=== PATIENT | male | born 1935 | race Caucasian/White ===

== ENCOUNTER 2023-12-20 13:27 | Inpatient (IN) ==
[2023-12-20 14:14] LABS: Hematocrit 51.4 % (38-53); Hemoglobin 17.5 g/dL (13.2-16.3); Mean Corpuscular Hemoglobin 33.7 pg (27-33); Mean Corpuscular Volume 99.3 fL (80-97); Mean Platelet Volume 8.9 fL (7.5-11.2); Platelet Count 532 10^3/uL (150-450); Red Blood Count 5.18 10^6/uL (4.06-5.63); Red Cell Distribution Width 15.1 % (12-17); White Blood Count 28.3 10^3/uL (3.6-10.2)
[2023-12-20 14:35] LABS: Activated Partial Thrombo Time 37.1 seconds (26.0-38.0); INR 2.06 (0.85-1.14)
[2023-12-20 14:44] LABS: High Sens Troponin Baseline 96 pg/mL (<20)
[2023-12-20 14:50] LABS: ALT 30 U/L (7-52); Albumin 3.9 g/dL (3.2-5.2); Albumin/Globulin Ratio 1.3 (1-3); Alkaline Phosphatase 177 U/L (35-149); Anion Gap 9 mmol/L (2-16); Blood Urea Nitrogen 41 mg/dL (6-24); C Reactive Protein 212.41 mg/L (<8.01); CO2 Carbon Dioxide 25 mmol/L (22-32); Calcium 11.7 mg/dL (8.6-10.3); Chloride 103 mmol/L (101-111); Creatinine, Serum 1.03 mg/dL (0.67-1.17); Digoxin 1.9 ng/ml (0.8-2.0); Globulin 3.1 g/dL (2-4); Glucose 136 mg/dL (70-100); Sodium 137 mmol/L (135-145); Total Bilirubin 1.5 mg/dL (0.2-1.0); eGFR CKD-EPI 70.7 (>60)
[2023-12-20 15:02] LABS: ABS Basophils 0.1 10^3/uL (0.0-0.1); ABS Eosinophils 0.2 10^3/uL (0.0-0.5); ABS Lymphocytes 0.8 10^3/uL (1.0-4.8); ABS Monocytes 2.4 10^3/uL (0.0-1.1); ABS Neutrophils 24.8 10^3/uL (1.5-7.6); ABS Nucleated RBC 0.02 10^3/ul; Anisocytosis 1+; Eosinophil % 0.7 %; Lymphocyte % 2.7 %; Nucleated Red Blood Cells % 0.1 %/100WBC (0.0-0.8); Polychromasia 1+; Toxic Granulation 1+
[2023-12-20] MEDS: Azithromycin 500 mg/250 ml NS 500 MG/250 ML BAG IVPB ONE (15:24)
[2023-12-20] MEDS: Piperacillin/Tazobac 3.375 BAG 3.375 GM/100 ML BAG IV ONE (15:24)
[2023-12-20] MEDS: NS 0.9% 500 ml BAG 500 ML IV ONE ×2 (15:24→19:40)
[2023-12-20 15:57] LABS: Urine Appearance Clear; Urine Bilirubin Negative (Negative); Urine Blood Negative (Negative); Urine Color Yellow; Urine Glucose Negative (Negative); Urine Ketones Negative (Negative); Urine Nitrite Negative (Negative); Urine Protein 1+ (>=30 mg/dL) (Negative); Urine Specific Gravity 1.025 (1.002-1.030); Urine Urobilinogen Negative (Negative); Urine pH 5.5 (5.0-8.0)
[2023-12-20 15:58] LABS: Urine Bacteria Absent /HPF (Absent); Urine Red Blood Cell Trace(0-2/hpf) /HPF (0-Trace); Urine White Blood Cell Trace(0-5/hpf) /HPF (0-Trace)
[2023-12-20 16:01] LABS: High Sensitivity Troponin 1 Hr 99 pg/mL (<20)
[2023-12-20 16:19] LABS: Potassium Redraw 4.2 mmol/L (3.5-5.0)
[2023-12-20] MEDS: Iohexol 350 (CONTRAST) 500 ML MDV IV ONE (16:32)
[2023-12-20] MEDS ORDERED: Magnesium Hydroxide LIQ 30 ML UDC PO PRN (19:18)
[2023-12-20] MEDS ORDERED: Mineral Oil ENEMA 118 ML/BOTTLE BOTTLE PR PRN (19:18)
[2023-12-20] MEDS: Lactated Ringers 1000 ml BAG 1,000 ML IV ONE (19:35)
[2023-12-20] MEDS ORDERED: Zosyn per Pharmacy NOTE FOLLOW UP SCH (20:00)
[2023-12-20] MEDS: ZOSYN 3.375 GM Q8H per EXTENDED INFUSION IV SCH (21:30)
[2023-12-21 07:30] LABS: Anion Gap 14 mmol/L (2-16); Blood Urea Nitrogen 33 mg/dL (6-24); CO2 Carbon Dioxide 15 mmol/L (22-32); Calcium 10.8 mg/dL (8.6-10.3); Chloride 108 mmol/L (101-111); Glucose 80 mg/dL (70-100); Sodium 137 mmol/L (135-145); eGFR CKD-EPI 83.2 (>60)
[2023-12-21 07:57] LABS: Hematocrit 49.4 % (38-53); Hemoglobin 16.5 g/dL (13.2-16.3); Mean Corpuscular Hemoglobin 33.9 pg (27-33); Mean Corpuscular Hgb Conc 33.4 g/dL (31-36); Mean Corpuscular Volume 101.4 fL (80-97); Mean Platelet Volume 8.8 fL (7.5-11.2); Platelet Count 449 10^3/uL (150-450); Red Blood Count 4.88 10^6/uL (4.06-5.63); White Blood Count 24.3 10^3/uL (3.6-10.2)
[2023-12-21] MEDS: ZOSYN 3.375 GM Q8H per EXTENDED INFUSION IV SCH (07:57)
[2023-12-21 09:26] LABS: Calcium (PTH Intact) 10.7 mg/dL (8.6-10.3)
[2023-12-21] MEDS ORDERED: Vancomycin per Pharmacy 1 EA NOTE FOLLOW UP SCH (11:00)
[2023-12-21] MEDS: Vancomycin 1,250 MG in NS 0.9% 250 ml 250 ML IVPB ONE (11:43)
[2023-12-21] MEDS: Azithromycin 500 mg/250 ml NS 500 MG/250 ML BAG IVPB SCH (16:00)
[2023-12-21] MEDS: Vancomycin 1000 MG in NS 0.9% 250 ML IVPB SCH (23:10)
[2023-12-22 05:45] LABS: Hematocrit 45.9 % (38-53); Hemoglobin 15.8 g/dL (13.2-16.3); Mean Corpuscular Hemoglobin 33.8 pg (27-33); Mean Corpuscular Hgb Conc 34.3 g/dL (31-36); Mean Corpuscular Volume 98.4 fL (80-97); Mean Platelet Volume 8.9 fL (7.5-11.2); Platelet Count 510 10^3/uL (150-450); Red Blood Count 4.66 10^6/uL (4.06-5.63); Red Cell Distribution Width 15.1 % (12-17); White Blood Count 23.6 10^3/uL (3.6-10.2)
[2023-12-22 06:59] LABS: ABS Basophils 0.3 10^3/uL (0.0-0.1); ABS Eosinophils 1.2 10^3/uL (0.0-0.5); ABS Lymphocytes 1.8 10^3/uL (1.0-4.8); ABS Monocytes 2.3 10^3/uL (0.0-1.1); ABS Neutrophils 18.1 10^3/uL (1.5-7.6); ABS Nucleated RBC 0.01 10^3/ul; Eosinophil % 5.1 %; Lymphocyte % 7.4 %; Nucleated Red Blood Cells % 0.1 %/100WBC (0.0-0.8)
[2023-12-22 07:09] LABS: Creatinine, Serum 0.92 mg/dL (0.67-1.17); Magnesium 1.7 mg/dL (1.9-2.7); Potassium 4.7 mmol/L (3.5-5.0)
[2023-12-22] MEDS: Magnesium Sulf 4 GM/100 ML IV 4,000 MG/100 ML BAG IVPB ONE (09:35)
[2023-12-23 06:19] LABS: Hematocrit 54.1 % (38-53); Hemoglobin 17.9 g/dL (13.2-16.3); Mean Corpuscular Hemoglobin 33.6 pg (27-33); Mean Corpuscular Hgb Conc 33.1 g/dL (31-36); Mean Corpuscular Volume 101.5 fL (80-97); Platelet Count 524 10^3/uL (150-450); Red Blood Count 5.33 10^6/uL (4.06-5.63); Red Cell Distribution Width 15.2 % (12-17); White Blood Count 24.3 10^3/uL (3.6-10.2)
[2023-12-23 06:21] LABS: ABS Basophils 0.2 10^3/uL (0.0-0.1); ABS Eosinophils 1.2 10^3/uL (0.0-0.5); ABS Lymphocytes 1.5 10^3/uL (1.0-4.8); ABS Neutrophils 19.4 10^3/uL (1.5-7.6); ABS Nucleated RBC 0.01 10^3/ul; Eosinophil % 4.9 %; Lymphocyte % 6.1 %
[2023-12-23] MEDS: Magnesium Sulfate 2 gm BAG 2 GM/50 ML BAG IVPB ONE (07:45)
[2023-12-23 08:13] LABS: Anion Gap 10 mmol/L (2-16); Blood Urea Nitrogen 23 mg/dL (6-24); CO2 Carbon Dioxide 16 mmol/L (22-32); Calcium 10.2 mg/dL (8.6-10.3); Chloride 111 mmol/L (101-111); Creatinine, Serum 0.88 mg/dL (0.67-1.17); Glucose 81 mg/dL (70-100); Magnesium 2.3 mg/dL (1.9-2.7); Sodium 137 mmol/L (135-145); eGFR CKD-EPI 83.7 (>60)
[2023-12-23 08:17] LABS: Potassium, Whole Blood 4.3 mmol/L (3.4-4.5)
[2023-12-23] MEDS ORDERED: Vancomycin Trough Check NOTE FOLLOW UP ONE (10:30)
[2023-12-23 11:25] LABS: Creatinine, Serum 0.87 mg/dL (0.67-1.17)
[2023-12-23 11:53] LABS: Hematocrit 49.8 % (38-53); Hemoglobin 16.8 g/dL (13.2-16.3); Mean Corpuscular Hemoglobin 33.5 pg (27-33); Mean Corpuscular Hgb Conc 33.7 g/dL (31-36); Mean Corpuscular Volume 99.4 fL (80-97); Mean Platelet Volume 8.6 fL (7.5-11.2); Platelet Count 533 10^3/uL (150-450); Red Blood Count 5.01 10^6/uL (4.06-5.63); Red Cell Distribution Width 14.6 % (12-17); White Blood Count 23.5 10^3/uL (3.6-10.2)
[2023-12-23] MEDS ORDERED: Vancomycin per Pharmacy 1 EA NOTE FOLLOW UP SCH (12:00)
[2023-12-23] MEDS: Acyclovir IV 700 MG in NS 0.9% 100 ml BAG 100 ML IVPB SCH (12:16)
[2023-12-23 12:21] LABS: ABS Basophils 0.1 10^3/uL (0.0-0.1); ABS Lymphocytes 1.1 10^3/uL (1.0-4.8); ABS Monocytes 1.9 10^3/uL (0.0-1.1); ABS Neutrophils 19.4 10^3/uL (1.5-7.6); ABS Nucleated RBC 0.01 10^3/ul; Eosinophil % 4.3 %; Lymphocyte % 4.7 %
[2023-12-23 12:22] LABS: Creatinine, Serum 0.89 mg/dL (0.67-1.17); eGFR CKD-EPI 83.5 (>60)
[2023-12-23] MEDS: Ampicillin ADVAN 2 GM in NS 0.9% 100 ml BAG 100 ML IVPB SCH (13:16)
[2023-12-23] MEDS: Vancomycin 1,500 MG in NS 0.9% 250 ml 250 ML IVPB ONE (13:48)
[2023-12-23] MEDS: Heparin 5000 UNITS/ML 1 mL VIAL IV SCH (14:03)
[2023-12-23] MEDS: Heparin DRIP 25,000 UNITS BAG 25,000 UNITS/250 ML BAG IV SCH (14:06)
[2023-12-23] MEDS: Iohexol 350 (CONTRAST) 500 ML MDV IV ONE (15:05)
[2023-12-23 16:07] LABS: Albumin 3.5 g/dL (3.2-5.2); Albumin/Globulin Ratio 1.5 (1-3); Direct Bilirubin 0.3 mg/dL (0.03-0.18); Globulin 2.4 g/dL (2-4); Total Bilirubin 1.3 mg/dL (0.2-1.0); Total Protein 5.9 g/dL (6.4-8.9)
[2023-12-23] MEDS: Cefepime 2 GM in Dextrose 2 GM/50 ML BAG IV SCH (17:34)
[2023-12-23] MEDS: Lactated Ringers 1000 ml BAG 1,000 ML IV ONE (17:49)
[2023-12-23] MEDS: Digoxin IV 0.5 MG/2 ML AMP (0.25 MG/ML) IV SLOW PU ONE (21:03)
[2023-12-23] MEDS: Morphine 2 MG/ML SYRINGE IV ONE (21:57)
[2023-12-23] MEDS: Metoprolol Tartrate 5 mg VIAL 5 ml VIAL (1 mg/ml) IV SCH (22:29)
[2023-12-23 22:30] LABS: Calcium 10.1 mg/dL (8.6-10.3); Creatinine, Serum 0.92 mg/dL (0.67-1.17)
[2023-12-24] MEDS: Vancomycin 1000 MG in NS 0.9% 250 ML IVPB SCH (01:54)
[2023-12-24 08:51] LABS: Hematocrit 48.7 % (38-53); Hemoglobin 16.1 g/dL (13.2-16.3); Mean Corpuscular Hemoglobin 33.1 pg (27-33); Mean Corpuscular Hgb Conc 33.1 g/dL (31-36); Mean Corpuscular Volume 100.2 fL (80-97); Mean Platelet Volume 8.6 fL (7.5-11.2); Platelet Count 614 10^3/uL (150-450); Red Blood Count 4.86 10^6/uL (4.06-5.63); White Blood Count 30.3 10^3/uL (3.6-10.2)
[2023-12-24 08:54] LABS: ALT 27 U/L (7-52); Albumin 3.4 g/dL (3.2-5.2); Albumin/Globulin Ratio 1.3 (1-3); Alkaline Phosphatase 158 U/L (35-149); Anion Gap 14 mmol/L (2-16); Blood Urea Nitrogen 21 mg/dL (6-24); CO2 Carbon Dioxide 14 mmol/L (22-32); Calcium 9.9 mg/dL (8.6-10.3); Chloride 112 mmol/L (101-111); Globulin 2.7 g/dL (2-4); Glucose 97 mg/dL (70-100); Sodium 140 mmol/L (135-145); Total Bilirubin 1.3 mg/dL (0.2-1.0); Total Protein 6.1 g/dL (6.4-8.9); eGFR CKD-EPI 83.2 (>60)
[2023-12-24 09:33] LABS: ABS Basophils 0.3 10^3/uL (0.0-0.1); ABS Eosinophils 0.6 10^3/uL (0.0-0.5); ABS Lymphocytes 0.7 10^3/uL (1.0-4.8); ABS Monocytes 2.1 10^3/uL (0.0-1.1); ABS Neutrophils 26.6 10^3/uL (1.5-7.6); ABS Nucleated RBC 0.04 10^3/ul; Eosinophil % 1.9 %; Lymphocyte % 2.4 %; Nucleated Red Blood Cells % 0.1 %/100WBC (0.0-0.8)
[2023-12-24 12:01] LABS: Phosphorus 2.5 mg/dL (2.5-5.0); Potassium Redraw 4.4 mmol/L (3.5-5.0)
[2023-12-24 12:11] LABS: PCO2 Arterial 25 mmHg (35-45); PO2 Arterial 63 mmHg (80-100)
[2023-12-24 15:53] LABS: Urine Appearance Clear; Urine Bacteria Absent /HPF (Absent); Urine Bilirubin Negative (Negative); Urine Blood 1+ (Negative); Urine Color Yellow; Urine Glucose Negative (Negative); Urine Ketones 1+ (Negative); Urine Nitrite Negative (Negative); Urine Protein 1+ (>=30 mg/dL) (Negative); Urine Red Blood Cell 2+(6-10/hpf) /HPF (0-Trace); Urine Specific Gravity >1.050 (1.002-1.030); Urine Urobilinogen Negative (Negative); Urine White Blood Cell Trace(0-5/hpf) /HPF (0-Trace); Urine pH 5.5 (5.0-8.0)
[2023-12-24] MEDS ORDERED: cefTRIAXone 2 gm/50 mL D5W 2 GM/50 ML BAG IV SCH (16:45)
[2023-12-24] MEDS: Digoxin IV 0.5 MG/2 ML AMP (0.25 MG/ML) IV SLOW PU ONE (19:00)
[2023-12-24] MEDS: Morphine 2 MG/ML SYRINGE IV PRN (21:16)
[2023-12-24] MEDS: Cefepime 2 GM in Dextrose 2 GM/50 ML BAG IV SCH (23:03)
[2023-12-25 06:51] LABS: Hematocrit 46.9 % (38-53); Hemoglobin 15.8 g/dL (13.2-16.3); Mean Corpuscular Hemoglobin 32.9 pg (27-33); Mean Corpuscular Hgb Conc 33.6 g/dL (31-36); Mean Corpuscular Volume 97.8 fL (80-97); Platelet Count 590 10^3/uL (150-450); Red Cell Distribution Width 14.9 % (12-17); White Blood Count 31.7 10^3/uL (3.6-10.2)
[2023-12-25 07:31] LABS: ABS Basophils 0.2 10^3/uL (0.0-0.1); ABS Eosinophils 0.2 10^3/uL (0.0-0.5); ABS Lymphocytes 0.6 10^3/uL (1.0-4.8); ABS Monocytes 2.1 10^3/uL (0.0-1.1); ABS Neutrophils 28.6 10^3/uL (1.5-7.6); ABS Nucleated RBC 0.02 10^3/ul; Calcium 9.7 mg/dL (8.6-10.3); Creatinine, Serum 1.05 mg/dL (0.67-1.17); Eosinophil % 0.7 %; Lymphocyte % 1.9 %; Magnesium 1.9 mg/dL (1.9-2.7); Potassium 4.3 mmol/L (3.5-5.0); eGFR CKD-EPI 69.1 (>60)
[2023-12-25] MEDS: Dexamethasone IV 4 MG/ML VIAL 1 ml VIAL IV SLOW PU SCH ×3 (10:58→17:56)
[2023-12-25] MEDS: Albuterol/Ipratropium NEB.SOL (2.5/0.5 MG) 3 ML NEB.SOLN INH PRN (11:47)
[2023-12-25] MEDS: cefTRIAXone 2 gm/50 mL D5W 2 GM/50 ML BAG IV SCH (11:52)
[2023-12-25] MEDS: Pantoprazole VIAL 40 MG VIAL IV SCH (12:02)
[2023-12-25] MEDS ORDERED: Metoprolol Tartrate 5 mg VIAL 5 ml VIAL (1 mg/ml) ONE (14:09)
[2023-12-25] MEDS: Metoprolol Tartrate 5 mg VIAL 5 ml VIAL (1 mg/ml) IV ONE ×2 (14:17→16:40)
[2023-12-25] MEDS: Vancomycin Trough Check NOTE FOLLOW UP ONE (14:23)
[2023-12-25 15:03] LABS: Body Fluid Source Cerebral Spinal
[2023-12-25 15:20] LABS: CSF Glucose 78 mg/dL (40-70)
[2023-12-25 15:55] LABS: Body Fluid Mono 43 %; Body Fluid Total Cells Counted 100
[2023-12-25 15:57] LABS: Body Fluid Appearance Clear; Body Fluid Color Colorless; CSF Tube # 4
[2023-12-25] MEDS: Digoxin IV 0.5 MG/2 ML AMP (0.25 MG/ML) IV SLOW PU SCH (16:55)
[2023-12-25] MEDS: Metoprolol Tartrate 5 mg VIAL 5 ml VIAL (1 mg/ml) IV SCH (16:55)
[2023-12-25] MEDS: Lidocaine 1% MPF 5 ML VIAL INJ ONE (17:37)
[2023-12-25 18:18] LABS: CSF Body Fluid WBC 43 /mcL
[2023-12-25 19:30] LABS: Hematocrit 52.9 % (38-53); Hemoglobin 17.7 g/dL (13.2-16.3); Mean Corpuscular Hgb Conc 33.5 g/dL (31-36); Mean Corpuscular Volume 98.6 fL (80-97); Mean Platelet Volume 8.6 fL (7.5-11.2); Platelet Count 591 10^3/uL (150-450); Red Blood Count 5.36 10^6/uL (4.06-5.63); Red Cell Distribution Width 15.1 % (12-17); White Blood Count 26.8 10^3/uL (3.6-10.2)
[2023-12-25 19:59] LABS: ABS Basophils 0.4 10^3/uL (0.0-0.1); ABS Lymphocytes 0.4 10^3/uL (1.0-4.8); ABS Monocytes 0.6 10^3/uL (0.0-1.1); ABS Neutrophils 25.4 10^3/uL (1.5-7.6); ABS Nucleated RBC 0.01 10^3/ul; Eosinophil % 0.1 %; Lymphocyte % 1.3 %
[2023-12-25 20:16] LABS: Creatinine, Serum 1.3 mg/dL (0.67-1.17); eGFR CKD-EPI 53.5 (>60)
[2023-12-25] MEDS: Heparin 5000 UNITS/ML 1 mL VIAL IV SCH (20:19)
[2023-12-25] MEDS: Heparin DRIP 25,000 UNITS BAG 25,000 UNITS/250 ML BAG IV SCH (20:26)
[2023-12-26] MEDS: Albuterol/Ipratropium NEB.SOL (2.5/0.5 MG) 3 ML NEB.SOLN INH ONE (00:20)
[2023-12-26] MEDS: Sodium Chloride(INHALANT) 3% 4 ML NEB.SOLN INH ONE (00:24)
[2023-12-26] MEDS: Vancomycin 750 MG in NS 0.9% 250 ML IVPB SCH (00:54)
[2023-12-26 03:29] LABS: ALT 19 U/L (7-52); Albumin 3.3 g/dL (3.2-5.2); Albumin/Globulin Ratio 1.2 (1-3); Alkaline Phosphatase 118 U/L (35-149); Anion Gap 18 mmol/L (2-16); Blood Urea Nitrogen 33 mg/dL (6-24); CO2 Carbon Dioxide 14 mmol/L (22-32); Calcium 9.9 mg/dL (8.6-10.3); Chloride 114 mmol/L (101-111); Creatinine, Serum 1.45 mg/dL (0.67-1.17); Globulin 2.7 g/dL (2-4); Glucose 174 mg/dL (70-100); Sodium 146 mmol/L (135-145); eGFR CKD-EPI 46.9 (>60)
[2023-12-26 03:40] LABS: Hemoglobin 16.8 g/dL (13.2-16.3); Mean Corpuscular Hemoglobin 33.3 pg (27-33); Mean Corpuscular Hgb Conc 33.6 g/dL (31-36); Mean Corpuscular Volume 99.2 fL (80-97); Mean Platelet Volume 8.6 fL (7.5-11.2); Platelet Count 608 10^3/uL (150-450); Red Blood Count 5.04 10^6/uL (4.06-5.63); White Blood Count 23.5 10^3/uL (3.6-10.2)
[2023-12-26 04:22] LABS: ABS Basophils 0.1 10^3/uL (0.0-0.1); ABS Lymphocytes 0.6 10^3/uL (1.0-4.8); ABS Monocytes 0.3 10^3/uL (0.0-1.1); ABS Neutrophils 22.5 10^3/uL (1.5-7.6); ABS Nucleated RBC 0.02 10^3/ul; Eosinophil % 0.1 %; Lymphocyte % 2.4 %; Nucleated Red Blood Cells % 0.1 %/100WBC (0.0-0.8)
[2023-12-26 09:30] LABS: Potassium Redraw 4.3 mmol/L (3.5-5.0)
[2023-12-26] MEDS ORDERED: Lactated Ringers 1000 ml BAG 1,000 ML IV SCH ×2 (11:00→13:43)
[2023-12-26] MEDS: Lactated Ringers 1000 ml BAG 1,000 ML IV SCH ×2 (12:25→14:02)
[2023-12-26] MEDS: Lactated Ringers 1000 ml BAG 1,000 ML IV ONE (16:11)
[2023-12-26] MEDS: Lidocaine 1% MPF 5 ML VIAL INJ ONE (17:15)
[2023-12-26] MEDS ORDERED: Lorazepam PYXIS KEY PRN (18:33)
[2023-12-26] MEDS: LORazepam 2 mg VIAL 1 ml IV PUSH PRN (18:44)
[2023-12-27] MEDS: Acyclovir IV 700 MG in NS 0.9% 100 ml BAG 100 ML IVPB SCH (00:54)
[2023-12-27 06:35] LABS: Hematocrit 42.7 % (38-53); Hemoglobin 14.4 g/dL (13.2-16.3); Mean Corpuscular Hgb Conc 33.7 g/dL (31-36); Mean Platelet Volume 8.4 fL (7.5-11.2); Platelet Count 522 10^3/uL (150-450); Red Blood Count 4.36 10^6/uL (4.06-5.63); Red Cell Distribution Width 15.2 % (12-17)
[2023-12-27 07:37] LABS: ABS Basophils 0.1 10^3/uL (0.0-0.1); ABS Lymphocytes 0.6 10^3/uL (1.0-4.8); ABS Monocytes 0.8 10^3/uL (0.0-1.1); ABS Neutrophils 24.5 10^3/uL (1.5-7.6); ABS Nucleated RBC 0.01 10^3/ul; Lymphocyte % 2.3 %
[2023-12-27 08:21] LABS: Albumin/Globulin Ratio 1.3 (1-3); Calcium 9.6 mg/dL (8.6-10.3); Creatinine, Serum 1.48 mg/dL (0.67-1.17); Globulin 2.4 g/dL (2-4); Magnesium 2.2 mg/dL (1.9-2.7); Phosphorus 2.9 mg/dL (2.5-5.0); Total Bilirubin 0.6 mg/dL (0.2-1.0); Total Protein 5.4 g/dL (6.4-8.9); eGFR CKD-EPI 45.8 (>60)
[2023-12-27 08:40] LABS: Ferritin 293.1 ng/mL (24-336)
[2023-12-27] MEDS ORDERED: Vancomycin Trough Check NOTE FOLLOW UP ONE (11:30)
[2023-12-27 14:55] LABS: CSF VDRL Negative (Negative)
[2023-12-27 15:23] LABS: CSF Oligoclonal Bands 4 bands; Oligoclonal Proteins Interpret 0 bands (<2); Serum Oligoclonal Bands 4 bands
[2023-12-27 19:33] LABS: HSV 1 PCR, CSF Negative (Negative); HSV 2 PCR, CSF Negative (Negative)
[2023-12-28] MEDS: Acetaminophen IV 1 GM/100ML 1,000 MG/100 ML BAG IV PRN (01:46)
[2023-12-28 06:05] LABS: Hematocrit 44.8 % (38-53); Mean Corpuscular Hemoglobin 32.9 pg (27-33); Mean Corpuscular Hgb Conc 33.6 g/dL (31-36); Mean Corpuscular Volume 98.2 fL (80-97); Mean Platelet Volume 8.4 fL (7.5-11.2); Platelet Count 518 10^3/uL (150-450); Red Blood Count 4.56 10^6/uL (4.06-5.63); Red Cell Distribution Width 14.9 % (12-17); White Blood Count 30.2 10^3/uL (3.6-10.2)
[2023-12-28 06:51] LABS: ABS Basophils 0.1 10^3/uL (0.0-0.1); ABS Monocytes 1.3 10^3/uL (0.0-1.1); ABS Neutrophils 27.8 10^3/uL (1.5-7.6); ABS Nucleated RBC 0.03 10^3/ul; Lymphocyte % 3.2 %; Nucleated Red Blood Cells % 0.1 %/100WBC (0.0-0.8)
[2023-12-28 06:52] LABS: RBC Morphology Normal (Normal)
[2023-12-28 07:14] LABS: Anion Gap 12 mmol/L (2-16); Blood Urea Nitrogen 49 mg/dL (6-24); CO2 Carbon Dioxide 21 mmol/L (22-32); Calcium 9.8 mg/dL (8.6-10.3); Chloride 115 mmol/L (101-111); Creatinine, Serum 1.35 mg/dL (0.67-1.17); Glucose 146 mg/dL (70-100); Sodium 148 mmol/L (135-145); eGFR CKD-EPI 51.1 (>60)
[2023-12-28] MEDS: Albumin Human 25% 12.5 GM/50 ML BTL IV ONE (12:58)
[2023-12-28] MEDS: Furosemide 40 mg/4 ml IV VIAL IV SLOW PU ONE (14:32)
[2023-12-28 14:39] LABS: TB1 Ag minus Nil Result -0.01 IU/mL; TB2 Ag minus Nil Result -0.01 IU/mL
[2023-12-28 14:45] LABS: QuantiferonTb Gold Plus Result Indeterminate (Negative)
[2023-12-28] MEDS: methylPREDNISolone SOD SUCC 1000 MG ML VIAL IVPB ONE (18:43)
[2023-12-28] MEDS: methylPREDNISolone SOD SUCC 1000 MG in NS 0.9% 100 ML IVPB ONE (19:50)
[2023-12-28 21:32] LABS: B. burgdorferi PCR Negative (Negative); B. garinii/B. afzellii PCR Negative (Negative); Lyme Disease Source CSF
[2023-12-28] MEDS: levETIRAcetam IV 750 MG in NS 0.9% 100 ml BAG 100 ML IVPB SCH (23:08)
[2023-12-29 06:36] LABS: Hematocrit 46.6 % (38-53); Mean Corpuscular Hemoglobin 33.4 pg (27-33); Mean Corpuscular Hgb Conc 34.3 g/dL (31-36); Mean Corpuscular Volume 97.2 fL (80-97); Mean Platelet Volume 8.6 fL (7.5-11.2); Platelet Count 455 10^3/uL (150-450); Red Blood Count 4.79 10^6/uL (4.06-5.63); Red Cell Distribution Width 15.1 % (12-17); White Blood Count 28.2 10^3/uL (3.6-10.2)
[2023-12-29 07:01] LABS: Albumin 3.3 g/dL (3.2-5.2); Albumin/Globulin Ratio 1.4 (1-3); Calcium 9.6 mg/dL (8.6-10.3); Creatinine, Serum 1.4 mg/dL (0.67-1.17); Globulin 2.4 g/dL (2-4); Total Bilirubin 0.9 mg/dL (0.2-1.0); Total Protein 5.7 g/dL (6.4-8.9); eGFR CKD-EPI 48.9 (>60)
[2023-12-29 08:00] LABS: ABS Lymphocytes 0.6 10^3/uL (1.0-4.8); ABS Monocytes 0.2 10^3/uL (0.0-1.1); ABS Neutrophils 27.4 10^3/uL (1.5-7.6); ABS Nucleated RBC 0.03 10^3/ul; Lymphocyte % 2.1 %; Nucleated Red Blood Cells % 0.1 %/100WBC (0.0-0.8)
[2023-12-29] MEDS: levETIRAcetam IV 750 MG in NS 0.9% 100 ml BAG 100 ML IVPB SCH (09:56)
[2023-12-29 11:43] LABS: Digoxin 1.4 ng/ml (0.8-2.0)
[2023-12-29] MEDS: methylPREDNISolone SOD SUCC 1,000 MG in NS 0.9% 100 ml BAG 100 ML IVPB SCH (20:55)
[2023-12-30 06:59] LABS: Hematocrit 47.2 % (38-53); Hemoglobin 15.9 g/dL (13.2-16.3); Mean Corpuscular Hemoglobin 33.1 pg (27-33); Mean Corpuscular Hgb Conc 33.8 g/dL (31-36); Mean Corpuscular Volume 98.1 fL (80-97); Mean Platelet Volume 9.3 fL (7.5-11.2); Platelet Count 411 10^3/uL (150-450); Red Blood Count 4.81 10^6/uL (4.06-5.63); Red Cell Distribution Width 15.1 % (12-17); White Blood Count 33.1 10^3/uL (3.6-10.2)
[2023-12-30 07:31] LABS: Calcium 9.1 mg/dL (8.6-10.3); Creatinine, Serum 1.17 mg/dL (0.67-1.17); Potassium 4.2 mmol/L (3.5-5.0); eGFR CKD-EPI 60.7 (>60)
[2023-12-30] MEDS: Sodium Chloride(INHALANT) 3% 4 ML NEB.SOLN INH ONE (07:32)
[2023-12-30 08:13] LABS: ABS Basophils 0.1 10^3/uL (0.0-0.1); ABS Lymphocytes 0.4 10^3/uL (1.0-4.8); ABS Monocytes 0.5 10^3/uL (0.0-1.1); ABS Neutrophils 32.1 10^3/uL (1.5-7.6); ABS Nucleated RBC 0.07 10^3/ul; Lymphocyte % 1.3 %; Nucleated Red Blood Cells % 0.2 %/100WBC (0.0-0.8)
[2023-12-30] MEDS: Morphine 2 MG/ML SYRINGE IV PRN (09:27)
[2023-12-30] MEDS ORDERED: Dextrose 50% Syringe 50 ml 25 GM/50 ML SYRINGE IV PUSH PRN (21:42)
[2023-12-30] MEDS: HYDROmorphone 1 MG/1 ML SYRINGE IV SLOW PU ONE (22:08)
[2023-12-31 07:15] LABS: Hematocrit 46.1 % (38-53); Hemoglobin 15.6 g/dL (13.2-16.3); Mean Corpuscular Hgb Conc 33.9 g/dL (31-36); Mean Corpuscular Volume 97.5 fL (80-97); Mean Platelet Volume 9.7 fL (7.5-11.2); Platelet Count 367 10^3/uL (150-450); Red Blood Count 4.73 10^6/uL (4.06-5.63); Red Cell Distribution Width 14.9 % (12-17); White Blood Count 36.5 10^3/uL (3.6-10.2)
[2023-12-31 07:37] LABS: ABS Lymphocytes 0.4 10^3/uL (1.0-4.8); ABS Monocytes 0.6 10^3/uL (0.0-1.1); ABS Neutrophils 35.5 10^3/uL (1.5-7.6); ABS Nucleated RBC 0.06 10^3/ul; Nucleated Red Blood Cells % 0.2 %/100WBC (0.0-0.8)
[2023-12-31 07:56] LABS: Albumin/Globulin Ratio 1.4 (1-3); C Reactive Protein 12.02 mg/L (<8.01); Calcium 8.7 mg/dL (8.6-10.3); Creatinine, Serum 1.05 mg/dL (0.67-1.17); Globulin 2.2 g/dL (2-4); Magnesium 2.2 mg/dL (1.9-2.7); Phosphorus 3.1 mg/dL (2.5-5.0); Potassium 4.3 mmol/L (3.5-5.0); Total Bilirubin 0.6 mg/dL (0.2-1.0); Total Protein 5.2 g/dL (6.4-8.9); eGFR CKD-EPI 69.1 (>60)
[2023-12-31] MEDS: methylPREDNISolone SOD SUCC 500 MG in NS 0.9% 100 ml BAG 100 ML IVPB ONE (20:23)
[2023-12-31] MEDS: Senna TAB 8.6 mg TAB PO SCH (20:29)
[2024-01-01 06:29] LABS: Hematocrit 48.5 % (38-53); Hemoglobin 16.3 g/dL (13.2-16.3); Mean Corpuscular Hemoglobin 32.9 pg (27-33); Mean Corpuscular Hgb Conc 33.5 g/dL (31-36); Mean Corpuscular Volume 98.2 fL (80-97); Mean Platelet Volume 9.7 fL (7.5-11.2); Platelet Count 375 10^3/uL (150-450); Red Blood Count 4.94 10^6/uL (4.06-5.63); Red Cell Distribution Width 15.2 % (12-17); White Blood Count 38.3 10^3/uL (3.6-10.2)
[2024-01-01 06:51] LABS: Calcium 8.7 mg/dL (8.6-10.3); Creatinine, Serum 1.02 mg/dL (0.67-1.17); Potassium 4.6 mmol/L (3.5-5.0); eGFR CKD-EPI 71.6 (>60)
[2024-01-01 07:21] LABS: Magnesium 2.2 mg/dL (1.9-2.7); Phosphorus 2.9 mg/dL (2.5-5.0)
[2024-01-01 18:26] LABS: AGNA-1, CSF Negative (Negative); Amphiphysin Ab, CSF Negative (Negative); CRMP-5-IgG, CSF Negative (Negative); IFA Notes None.; PCA-1, CSF Negative (Negative); PCA-2, CSF Negative (Negative); PCA-Tr, CSF Negative (Negative)
[2024-01-01] MEDS: methylPREDNISolone SOD SUCC 500 MG in NS 0.9% 100 ml BAG 100 ML IVPB ONE (19:48)
[2024-01-02 05:49] LABS: Hematocrit 49.9 % (38-53); Hemoglobin 16.3 g/dL (13.2-16.3); Mean Corpuscular Hemoglobin 32.3 pg (27-33); Mean Corpuscular Hgb Conc 32.7 g/dL (31-36); Mean Corpuscular Volume 98.8 fL (80-97); Platelet Count 371 10^3/uL (150-450); Red Blood Count 5.05 10^6/uL (4.06-5.63); Red Cell Distribution Width 15.2 % (12-17); White Blood Count 35.6 10^3/uL (3.6-10.2)
[2024-01-02 06:38] LABS: Creatinine, Serum 0.73 mg/dL (0.67-1.17); Magnesium 1.7 mg/dL (1.9-2.7); Phosphorus 2.4 mg/dL (2.5-5.0); Potassium 3.7 mmol/L (3.5-5.0); eGFR CKD-EPI 88.6 (>60)
[2024-01-02] MEDS: Magnesium Sulfate 2 gm BAG 2 GM/50 ML BAG IVPB ONE (07:48)
[2024-01-02] MEDS: Calcium Carbonate LIQ 1,250 mg/5 ml UDC PO SCH (08:56)
[2024-01-02] MEDS: Furosemide 20 mg/2 ml IV VIAL IV SLOW PU ONE ×2 (09:53→10:32)
[2024-01-02] MEDS: Nystatin SUSPENSION 100,000 UNITS/ML UDC PO SCH (10:39)
[2024-01-02] MEDS: Chlorhexidine MOUTHWASH 0.12% 15 ML UDC TOPICAL SCH (11:58)
[2024-01-02] MEDS: methylPREDNISolone SOD SUCC 40 mg/ml 1 ml VIAL IV SCH (12:38)
[2024-01-02] MEDS: Potassium Phosphate IV 10 MMOL in NS 0.9% 250 ml 250 ML IVPB ONE (17:16)
[2024-01-03 06:05] LABS: Hematocrit 48.1 % (38-53); Mean Corpuscular Hemoglobin 32.8 pg (27-33); Mean Corpuscular Hgb Conc 33.3 g/dL (31-36); Mean Corpuscular Volume 98.5 fL (80-97); Platelet Count 327 10^3/uL (150-450); Red Blood Count 4.89 10^6/uL (4.06-5.63); Red Cell Distribution Width 15.2 % (12-17); White Blood Count 35.4 10^3/uL (3.6-10.2)
[2024-01-03 06:34] LABS: Calcium 8.5 mg/dL (8.6-10.3); Creatinine, Serum 1.02 mg/dL (0.67-1.17); Magnesium 2.5 mg/dL (1.9-2.7); Potassium 4.9 mmol/L (3.5-5.0); eGFR CKD-EPI 71.6 (>60)
[2024-01-03] MEDS: Furosemide 40 mg/4 ml IV VIAL IV SLOW PU SCH (10:58)
[2024-01-04 05:50] LABS: Hematocrit 51.2 % (38-53); Hemoglobin 17.2 g/dL (13.2-16.3); Mean Corpuscular Hemoglobin 33.1 pg (27-33); Mean Corpuscular Hgb Conc 33.6 g/dL (31-36); Mean Corpuscular Volume 98.7 fL (80-97); Mean Platelet Volume 10.3 fL (7.5-11.2); Platelet Count 297 10^3/uL (150-450); Red Blood Count 5.18 10^6/uL (4.06-5.63); Red Cell Distribution Width 15.1 % (12-17); White Blood Count 43.2 10^3/uL (3.6-10.2)
[2024-01-04 06:30] LABS: Calcium 8.5 mg/dL (8.6-10.3); Creatinine, Serum 0.97 mg/dL (0.67-1.17); Magnesium 2.3 mg/dL (1.9-2.7); Phosphorus 3.7 mg/dL (2.5-5.0); Potassium 5.2 mmol/L (3.5-5.0)
[2024-01-04] MEDS: Haloperidol 5 mg/ml SDV IV/IM 5 MG/ML AMP IV SLOW PU PRN (23:19)
[2024-01-05] MEDS: Metoprolol Tartrate 5 mg VIAL 5 ml VIAL (1 mg/ml) IV ONE (05:33)
[2024-01-05 06:13] LABS: Hematocrit 51.5 % (38-53); Mean Corpuscular Hemoglobin 32.8 pg (27-33); Mean Corpuscular Hgb Conc 32.9 g/dL (31-36); Mean Corpuscular Volume 99.5 fL (80-97); Mean Platelet Volume 10.7 fL (7.5-11.2); Platelet Count 299 10^3/uL (150-450); Red Blood Count 5.18 10^6/uL (4.06-5.63); Red Cell Distribution Width 15.3 % (12-17); White Blood Count 40.2 10^3/uL (3.6-10.2)
[2024-01-05 06:48] LABS: Calcium 8.7 mg/dL (8.6-10.3); Creatinine, Serum 0.92 mg/dL (0.67-1.17); Magnesium 2.3 mg/dL (1.9-2.7); Phosphorus 3.8 mg/dL (2.5-5.0)
[2024-01-05 07:58] LABS: ABS Basophils 0.2 10^3/uL (0.0-0.1); ABS Lymphocytes 0.4 10^3/uL (1.0-4.8); ABS Neutrophils 37.6 10^3/uL (1.5-7.6); ABS Nucleated RBC 0.03 10^3/ul; Nucleated Red Blood Cells % 0.1 %/100WBC (0.0-0.8)
[2024-01-06] MEDS: Metoprolol Tartrate 5 mg VIAL 5 ml VIAL (1 mg/ml) IV ONE (00:56)
[2024-01-06 05:54] LABS: Hemoglobin 17.4 g/dL (13.2-16.3); Mean Corpuscular Hemoglobin 33.3 pg (27-33); Mean Corpuscular Hgb Conc 33.5 g/dL (31-36); Mean Corpuscular Volume 99.6 fL (80-97); Mean Platelet Volume 10.6 fL (7.5-11.2); Platelet Count 282 10^3/uL (150-450); Red Blood Count 5.22 10^6/uL (4.06-5.63); Red Cell Distribution Width 15.3 % (12-17); White Blood Count 39.6 10^3/uL (3.6-10.2)
[2024-01-06 06:00] LABS: INR 1.13 (0.85-1.14)
[2024-01-06 06:52] LABS: Calcium 9.1 mg/dL (8.6-10.3); Creatinine, Serum 0.88 mg/dL (0.67-1.17); Potassium 4.7 mmol/L (3.5-5.0); eGFR CKD-EPI 83.7 (>60)
[2024-01-06] MEDS: NS 0.45% 1000 ml BAG 1,000 ML IV SCH (10:44)
[2024-01-06] MEDS ORDERED: Metoprolol Tartrate 5 mg VIAL 5 ml VIAL (1 mg/ml) IV PRN (11:21)
[2024-01-06] MEDS: Metoprolol Tartrate 5 mg VIAL 5 ml VIAL (1 mg/ml) IV SCH ×2 (11:28→12:35)
[2024-01-06] MEDS ORDERED: Metoprolol Tartrate 5 mg VIAL 5 ml VIAL (1 mg/ml) IV SCH (12:00)
[2024-01-06] MEDS: methylPREDNISolone SOD SUCC 40 mg/ml 1 ml VIAL IV SCH (15:16)
[2024-01-06] MEDS: Digoxin IV 0.5 MG/2 ML AMP (0.25 MG/ML) IV SLOW PU SCH (17:57)
[2024-01-06] MEDS: levETIRAcetam 500 MG IVPREMIX 500 MG/100 ML BAG IVPB SCH (22:44)
[2024-01-07] MEDS: Metoprolol Tartrate 5 mg VIAL 5 ml VIAL (1 mg/ml) IV PRN ×2 (03:20→13:53)
[2024-01-07 06:41] LABS: Hematocrit 51.2 % (38-53); Hemoglobin 17.2 g/dL (13.2-16.3); Mean Corpuscular Hemoglobin 33.4 pg (27-33); Mean Corpuscular Hgb Conc 33.5 g/dL (31-36); Mean Corpuscular Volume 99.6 fL (80-97); Mean Platelet Volume 10.4 fL (7.5-11.2); Platelet Count 268 10^3/uL (150-450); Red Blood Count 5.14 10^6/uL (4.06-5.63); Red Cell Distribution Width 15.6 % (12-17); White Blood Count 40.6 10^3/uL (3.6-10.2)
[2024-01-07 06:59] LABS: Calcium 9.3 mg/dL (8.6-10.3); Creatinine, Serum 0.95 mg/dL (0.67-1.17); Potassium 4.6 mmol/L (3.5-5.0)
[2024-01-07] MEDS: Metoprolol Tartrate 5 mg VIAL 5 ml VIAL (1 mg/ml) IV SCH ×4 (10:50→20:29)
[2024-01-07] MEDS ORDERED: D5W 500 ml BAG 500 ML IV SCH ×2 (11:00)
[2024-01-07] MEDS: Lactated Ringers 1000 ml BAG 500 ML IV ONE (11:43)
[2024-01-07] MEDS: Enoxaparin 40 MG/0.4 ML SYR SUBCUT SCH (11:44)
[2024-01-07] MEDS: Magnesium Sulfate 2 gm BAG 2 GM/50 ML BAG IV ONE (11:44)
[2024-01-07] MEDS: Enoxaparin 40 MG/0.4 ML SYR SUBCUT ONE (13:48)
[2024-01-07] MEDS: methylPREDNISolone SOD SUCC 40 mg/ml 1 ml VIAL IV SCH ×2 (15:41→17:49)
[2024-01-07] MEDS ORDERED: Zosyn per Pharmacy NOTE FOLLOW UP SCH (17:00)
[2024-01-07] MEDS: Piperacillin/Tazobac 3.375 BAG 3.375 GM/100 ML BAG IV ONE (18:11)
[2024-01-07] MEDS: ZOSYN 3.375 GM Q8H per EXTENDED INFUSION IV SCH (23:59)
[2024-01-08] MEDS: Morphine 2 MG/ML SYRINGE IV ONE (07:56)
[2024-01-08 08:50] LABS: Hematocrit 50.8 % (38-53); Hemoglobin 16.5 g/dL (13.2-16.3); Mean Corpuscular Hemoglobin 32.5 pg (27-33); Mean Corpuscular Hgb Conc 32.4 g/dL (31-36); Mean Corpuscular Volume 100.1 fL (80-97); Mean Platelet Volume 10.5 fL (7.5-11.2); Platelet Count 265 10^3/uL (150-450); Red Blood Count 5.07 10^6/uL (4.06-5.63); Red Cell Distribution Width 15.8 % (12-17); White Blood Count 39.9 10^3/uL (3.6-10.2)
[2024-01-08 08:53] LABS: Calcium 9.4 mg/dL (8.6-10.3); Creatinine, Serum 1.02 mg/dL (0.67-1.17); Magnesium 2.2 mg/dL (1.9-2.7); Phosphorus 3.2 mg/dL (2.5-5.0); Potassium 3.8 mmol/L (3.5-5.0); eGFR CKD-EPI 71.6 (>60)
[2024-01-08 09:18] LABS: ABS Basophils 0.6 10^3/uL (0.0-0.1); ABS Lymphocytes 0.4 10^3/uL (1.0-4.8); ABS Monocytes 1.4 10^3/uL (0.0-1.1); ABS Neutrophils 37.6 10^3/uL (1.5-7.6); ABS Nucleated RBC 0.02 10^3/ul; Lymphocyte % 0.9 %; Nucleated Red Blood Cells % 0.1 %/100WBC (0.0-0.8)
[2024-01-08] MEDS: D5W 500 ml BAG 500 ML IV SCH (13:33)
[2024-01-09 09:56] LABS: Hematocrit 49.5 % (38-53); Hemoglobin 16.5 g/dL (13.2-16.3); Mean Corpuscular Hemoglobin 33.7 pg (27-33); Mean Corpuscular Hgb Conc 33.4 g/dL (31-36); Mean Platelet Volume 10.5 fL (7.5-11.2); Platelet Count 248 10^3/uL (150-450); Red Cell Distribution Width 16.1 % (12-17); White Blood Count 42.3 10^3/uL (3.6-10.2)
[2024-01-09 10:59] LABS: Anion Gap 10 mmol/L (2-16); Blood Urea Nitrogen 48 mg/dL (6-24); CO2 Carbon Dioxide 29 mmol/L (22-32); Calcium 9.2 mg/dL (8.6-10.3); Chloride 106 mmol/L (101-111); Creatinine, Serum 0.82 mg/dL (0.67-1.17); Glucose 196 mg/dL (70-100); Sodium 145 mmol/L (135-145); eGFR CKD-EPI 85.5 (>60)
[2024-01-09 11:01] LABS: ABS Basophils 0.5 10^3/uL (0.0-0.1); ABS Lymphocytes 0.4 10^3/uL (1.0-4.8); ABS Monocytes 1.6 10^3/uL (0.0-1.1); ABS Neutrophils 39.8 10^3/uL (1.5-7.6); ABS Nucleated RBC 0.02 10^3/ul; Eosinophil % 0.1 %; Lymphocyte % 0.8 %; Macrocytosis 1+
[2024-01-09 15:18] LABS: Phosphorus 2.7 mg/dL (2.5-5.0); Potassium Redraw 3.5 mmol/L (3.5-5.0)
[2024-01-09] MEDS ORDERED: Flumazenil 0.5 mg/5 ml 0.1 MG/ML 5 ml VIAL IV PRN (15:27)
[2024-01-09] MEDS ORDERED: Naloxone 0.4 mg VIAL 0.4 mg/ml 1 ml VIAL IV PUSH PRN (15:27)
[2024-01-09] MEDS: D5W 500 ml BAG 500 ML IV SCH (17:18)
[2024-01-09] MEDS: Bupivacaine 0.5% SDV PF 30ML VIAL ONE (17:24)
[2024-01-09] MEDS: Lidocaine 2% JELLY 6 ML Topical TOPICAL ONE (17:25)
[2024-01-09] MEDS: Midazolam 2 mg/2 ml VIAL 1 mg/ml 2 ml VIAL (2 mg) ONE (17:25)
[2024-01-09] MEDS: ceFAZolin 1 GM ADVAN 1 GM ADDV.VIAL IVPB ONE (17:25)
[2024-01-09] MEDS: fentaNYL 250 mcg/5 ml 50 MCG/ML 5 ml VIAL (250 MCG) ONE (17:25)
[2024-01-09] MEDS: Midazolam 10 mg/10 ml VIAL 1 mg/ml 10 ml VIAL (10 mg) IV SLOW PU ONE (17:26)
[2024-01-09] MEDS: Glucagon 1 mg VIAL KIT ONE (17:26)
[2024-01-09] MEDS: fentaNYL 100 mcg/2 ml 50 MCG/ML VIAL IV SLOW PU ONE (17:26)
[2024-01-09 19:59] LABS: Mean Corpuscular Hemoglobin 33.5 pg (27-33); Mean Corpuscular Hgb Conc 33.3 g/dL (31-36); Mean Corpuscular Volume 100.6 fL (80-97); Mean Platelet Volume 10.4 fL (7.5-11.2); Platelet Count 245 10^3/uL (150-450); Red Blood Count 4.77 10^6/uL (4.06-5.63); Red Cell Distribution Width 16.2 % (12-17); White Blood Count 38.2 10^3/uL (3.6-10.2)
[2024-01-09] MEDS: Acetaminophen IV 1 GM/100ML 1,000 MG/100 ML BAG IV PRN (20:03)
[2024-01-09 20:13] LABS: Activated Partial Thrombo Time 27.4 seconds (26.0-38.0); INR 1.19 (0.85-1.14)
[2024-01-09 20:38] LABS: ABS Lymphocytes 0.3 10^3/uL (1.0-4.8); ABS Monocytes 1.6 10^3/uL (0.0-1.1); ABS Neutrophils 36.3 10^3/uL (1.5-7.6); ABS Nucleated RBC 0.06 10^3/ul; Eosinophil % 0.1 %; Lymphocyte % 0.8 %; Nucleated Red Blood Cells % 0.2 %/100WBC (0.0-0.8)
[2024-01-10 00:42] LABS: Calcium 9.5 mg/dL (8.6-10.3); Creatinine, Serum 0.82 mg/dL (0.67-1.17); Phosphorus 2.6 mg/dL (2.5-5.0); Potassium 3.8 mmol/L (3.5-5.0); eGFR CKD-EPI 85.5 (>60)
[2024-01-10 18:12] LABS: Hematocrit 49.3 % (38-53); Hemoglobin 16.5 g/dL (13.2-16.3); Mean Corpuscular Hemoglobin 33.6 pg (27-33); Mean Corpuscular Hgb Conc 33.4 g/dL (31-36); Mean Corpuscular Volume 100.4 fL (80-97); Mean Platelet Volume 10.2 fL (7.5-11.2); Platelet Count 223 10^3/uL (150-450); Red Blood Count 4.91 10^6/uL (4.06-5.63); Red Cell Distribution Width 16.2 % (12-17); White Blood Count 40.9 10^3/uL (3.6-10.2)
[2024-01-10 18:25] LABS: Magnesium 2.1 mg/dL (1.9-2.7); Phosphorus 2.6 mg/dL (2.5-5.0)
[2024-01-10 18:50] LABS: ABS Basophils 0.5 10^3/uL (0.0-0.1); ABS Eosinophils 0.1 10^3/uL (0.0-0.5); ABS Lymphocytes 0.6 10^3/uL (1.0-4.8); ABS Monocytes 2.1 10^3/uL (0.0-1.1); ABS Neutrophils 37.6 10^3/uL (1.5-7.6); ABS Nucleated RBC 0.04 10^3/ul; Eosinophil % 0.1 %; Lymphocyte % 1.4 %; Nucleated Red Blood Cells % 0.1 %/100WBC (0.0-0.8)
[2024-01-10] MEDS: Senna TAB 8.6 mg TAB G TUBE SCH (22:09)
[2024-01-10] MEDS: levETIRAcetam LIQ 500 MG/5 ML UDC G TUBE SCH (22:09)
[2024-01-11] MEDS: Calcium Carbonate LIQ 1,250 mg/5 ml UDC G TUBE SCH (10:20)
[2024-01-11 10:22] LABS: Hematocrit 36.1 % (38-53); Mean Corpuscular Hemoglobin 33.8 pg (27-33); Mean Corpuscular Hgb Conc 33.4 g/dL (31-36); Mean Corpuscular Volume 101.4 fL (80-97); Mean Platelet Volume 10.2 fL (7.5-11.2); Platelet Count 146 10^3/uL (150-450); Red Blood Count 3.56 10^6/uL (4.06-5.63); White Blood Count 26.1 10^3/uL (3.6-10.2)
[2024-01-11 10:39] LABS: Albumin 2.8 g/dL (3.2-5.2); Albumin/Globulin Ratio 1.2 (1-3); Calcium 9.2 mg/dL (8.6-10.3); Creatinine, Serum 0.68 mg/dL (0.67-1.17); Globulin 2.3 g/dL (2-4); Magnesium 2.1 mg/dL (1.9-2.7); Phosphorus 2.2 mg/dL (2.5-5.0); Potassium 3.8 mmol/L (3.5-5.0); Total Bilirubin 2.2 mg/dL (0.2-1.0); Total Protein 5.1 g/dL (6.4-8.9); eGFR CKD-EPI 90.5 (>60)
[2024-01-11 13:12] LABS: ABS Basophils 0.2 10^3/uL (0.0-0.1); ABS Eosinophils 0.3 10^3/uL (0.0-0.5); ABS Lymphocytes 0.5 10^3/uL (1.0-4.8); ABS Monocytes 0.9 10^3/uL (0.0-1.1); ABS Neutrophils 24.3 10^3/uL (1.5-7.6); ABS Nucleated RBC 0.01 10^3/ul; Eosinophil % 1.1 %; Lymphocyte % 1.9 %
[2024-01-11] MEDS ORDERED: Potassium Phosphate IV 15 MMOL in NS 0.9% 250 ml 250 ML IVPB SCH (14:00)
[2024-01-11] MEDS: Potassium Phosphate IV 15 MMOL in NS 0.9% 250 ml 250 ML IVPB ONE (14:41)
[2024-01-11 18:44] LABS: PCO2 Arterial 36 mmHg (35-45); PO2 Arterial 74 mmHg (80-100)
[2024-01-11 18:54] LABS: Hematocrit 48.5 % (38-53); Hemoglobin 16.1 g/dL (13.2-16.3); Mean Corpuscular Hemoglobin 33.4 pg (27-33); Mean Corpuscular Hgb Conc 33.2 g/dL (31-36); Mean Corpuscular Volume 100.7 fL (80-97); Mean Platelet Volume 10.5 fL (7.5-11.2); Platelet Count 186 10^3/uL (150-450); Red Blood Count 4.82 10^6/uL (4.06-5.63); Red Cell Distribution Width 16.3 % (12-17); White Blood Count 36.1 10^3/uL (3.6-10.2)
[2024-01-11 19:11] LABS: Albumin 2.8 g/dL (3.2-5.2); Albumin/Globulin Ratio 1.2 (1-3); Calcium 9.5 mg/dL (8.6-10.3); Creatinine, Serum 0.67 mg/dL (0.67-1.17); Globulin 2.4 g/dL (2-4); Potassium 4.1 mmol/L (3.5-5.0); Total Bilirubin 2.2 mg/dL (0.2-1.0); Total Protein 5.2 g/dL (6.4-8.9); eGFR CKD-EPI 90.9 (>60)
[2024-01-11 19:36] LABS: ABS Basophils 0.2 10^3/uL (0.0-0.1); ABS Eosinophils 0.1 10^3/uL (0.0-0.5); ABS Lymphocytes 0.4 10^3/uL (1.0-4.8); ABS Monocytes 1.3 10^3/uL (0.0-1.1); ABS Neutrophils 34.2 10^3/uL (1.5-7.6); ABS Nucleated RBC 0.04 10^3/ul; Anisocytosis 1+; Eosinophil % 0.2 %; Macrocytosis 1+; Nucleated Red Blood Cells % 0.1 %/100WBC (0.0-0.8)
[2024-01-11] MEDS ORDERED: Vancomycin per Pharmacy 1 EA NOTE FOLLOW UP PRN (19:36)
[2024-01-11] MEDS: Enoxaparin 80 MG/0.8 ML SYR SUBCUT SCH (20:53)
[2024-01-11] MEDS: Albuterol/Ipratropium NEB.SOL (2.5/0.5 MG) 3 ML NEB.SOLN INH ONE (21:02)
[2024-01-11] MEDS: Cefepime 2 GM in Dextrose 2 GM/50 ML BAG IV SCH (21:20)
[2024-01-11] MEDS: Vancomycin 1,250 MG in NS 0.9% 250 ml 250 ML IVPB ONE (23:36)
[2024-01-12] MEDS: D5W 500 ml BAG 500 ML IV SCH (03:33)
[2024-01-12 05:23] LABS: Hematocrit 48.1 % (38-53); Hemoglobin 15.7 g/dL (13.2-16.3); Mean Corpuscular Hemoglobin 32.8 pg (27-33); Mean Corpuscular Hgb Conc 32.6 g/dL (31-36); Mean Corpuscular Volume 100.6 fL (80-97); Mean Platelet Volume 10.6 fL (7.5-11.2); Platelet Count 184 10^3/uL (150-450); Red Blood Count 4.78 10^6/uL (4.06-5.63); Red Cell Distribution Width 17.4 % (12-17); White Blood Count 36.3 10^3/uL (3.6-10.2)
[2024-01-12 06:35] LABS: ABS Basophils 0.5 10^3/uL (0.0-0.1); ABS Eosinophils 0.2 10^3/uL (0.0-0.5); ABS Lymphocytes 0.6 10^3/uL (1.0-4.8); ABS Monocytes 1.5 10^3/uL (0.0-1.1); ABS Neutrophils 33.6 10^3/uL (1.5-7.6); ABS Nucleated RBC 0.04 10^3/ul; Eosinophil % 0.6 %; Lymphocyte % 1.6 %; Nucleated Red Blood Cells % 0.1 %/100WBC (0.0-0.8)
[2024-01-12 06:49] LABS: Anion Gap 9 mmol/L (2-16); Blood Urea Nitrogen 36 mg/dL (6-24); CO2 Carbon Dioxide 29 mmol/L (22-32); Chloride 110 mmol/L (101-111); Creatinine, Serum 0.62 mg/dL (0.67-1.17); Glucose 132 mg/dL (70-100); Sodium 148 mmol/L (135-145); eGFR CKD-EPI 93.1 (>60)
[2024-01-12] MEDS: Vancomycin 750 MG in NS 0.9% 250 ML IVPB SCH (10:30)
[2024-01-12] MEDS: Morphine 2 MG/ML SYRINGE IV PRN (14:47)
[2024-01-12] MEDS: Scopolamine 1 mg/72hr PATCH TRANSDERM SCH (14:47)
[2024-01-12 16:39] LABS: PCO2 Arterial 41 mmHg (35-45); PO2 Arterial 89 mmHg (80-100)
[2024-01-12] MEDS: Metoprolol Tartrate 5 mg VIAL 5 ml VIAL (1 mg/ml) IV ONE (16:59)
[2024-01-12] MEDS: Iohexol 350 (CONTRAST) 500 ML MDV IV ONE (17:04)
[2024-01-12 21:30] LABS: TSH Ultra Thyroid Stim Horm 13.29 mcIU/mL (0.34-5.60)
[2024-01-12 23:39] LABS: Calcium 9.1 mg/dL (8.6-10.3); Creatinine, Serum 0.6 mg/dL (0.67-1.17); Phosphorus 1.9 mg/dL (2.5-5.0); Potassium 3.8 mmol/L (3.5-5.0)
[2024-01-12 23:51] LABS: Potassium, Whole Blood 4.6 mmol/L (3.4-4.5)
[2024-01-13 05:46] LABS: Hematocrit 44.3 % (38-53); Hemoglobin 14.8 g/dL (13.2-16.3); Mean Corpuscular Hemoglobin 33.5 pg (27-33); Mean Corpuscular Hgb Conc 33.4 g/dL (31-36); Mean Corpuscular Volume 100.4 fL (80-97); Mean Platelet Volume 10.7 fL (7.5-11.2); Platelet Count 148 10^3/uL (150-450); Red Blood Count 4.41 10^6/uL (4.06-5.63); White Blood Count 30.4 10^3/uL (3.6-10.2)
[2024-01-13 06:40] LABS: Anion Gap 5 mmol/L (2-16); Blood Urea Nitrogen 34 mg/dL (6-24); CO2 Carbon Dioxide 29 mmol/L (22-32); Calcium 8.6 mg/dL (8.6-10.3); Chloride 113 mmol/L (101-111); Creatinine, Serum 0.54 mg/dL (0.67-1.17); Glucose 115 mg/dL (70-100); Sodium 147 mmol/L (135-145); eGFR CKD-EPI 97.1 (>60)
[2024-01-13] MEDS ORDERED: Vancomycin Trough Check NOTE FOLLOW UP ONE (07:30)
[2024-01-13 08:34] LABS: ABS Basophils 0.1 10^3/uL (0.0-0.1); ABS Eosinophils 0.1 10^3/uL (0.0-0.5); ABS Lymphocytes 0.6 10^3/uL (1.0-4.8); ABS Monocytes 1.3 10^3/uL (0.0-1.1); ABS Neutrophils 28.3 10^3/uL (1.5-7.6); ABS Nucleated RBC 0.03 10^3/ul; Eosinophil % 0.4 %; Lymphocyte % 1.9 %; Nucleated Red Blood Cells % 0.1 %/100WBC (0.0-0.8)
[2024-01-13] MEDS ORDERED: Sulfur Hexaflouride MICROSPHR 25 MG VIAL IV PRN (10:08)
[2024-01-13 10:56] LABS: Free T4 0.94 ng/dL (0.61-1.12)
[2024-01-13 11:00] LABS: Total T3 23 ng/dL (87-178)
[2024-01-13] MEDS: methylPREDNISolone SOD SUCC 1,000 MG in NS 0.9% 1000 ml BAG 1,000 ML IVPB SCH (11:29)
[2024-01-13 12:09] LABS: Albumin 2.5 g/dL (3.2-5.2); Albumin/Globulin Ratio 1.1 (1-3); Calcium 9.2 mg/dL (8.6-10.3); Creatinine, Serum 0.63 mg/dL (0.67-1.17); Globulin 2.2 g/dL (2-4); Potassium 3.5 mmol/L (3.5-5.0); Total Bilirubin 1.9 mg/dL (0.2-1.0); Total Protein 4.7 g/dL (6.4-8.9); eGFR CKD-EPI 92.6 (>60)
[2024-01-13] MEDS: Potassium Phosphate IV 15 MMOL in NS 0.9% 250 ml 250 ML IVPB ONE (12:21)
[2024-01-13] MEDS: PPN (PERIPHERAL) 24 HR with D10W 1000 ml BAG 1,000 ML, Amino Acid Infusion 10% 850 ML, ... IV SCH (18:37)
[2024-01-13] MEDS: Potassium Phosphate IV 15 MMOL in NS 0.9% 250 ml 250 ML IVPB SCH (22:18)
[2024-01-14 08:46] LABS: Hematocrit 38.1 % (38-53); Hemoglobin 12.8 g/dL (13.2-16.3); Mean Corpuscular Hemoglobin 33.5 pg (27-33); Mean Corpuscular Hgb Conc 33.5 g/dL (31-36); Mean Platelet Volume 11.3 fL (7.5-11.2); Platelet Count 146 10^3/uL (150-450); Red Blood Count 3.81 10^6/uL (4.06-5.63); Red Cell Distribution Width 16.7 % (12-17); White Blood Count 26.2 10^3/uL (3.6-10.2)
[2024-01-14 09:01] LABS: ABS Basophils 0.1 10^3/uL (0.0-0.1); ABS Lymphocytes 0.3 10^3/uL (1.0-4.8); ABS Monocytes 0.7 10^3/uL (0.0-1.1); ABS Neutrophils 25.1 10^3/uL (1.5-7.6); ABS Nucleated RBC 0.01 10^3/ul; Lymphocyte % 1.1 %
[2024-01-14 09:05] LABS: Albumin 2.4 g/dL (3.2-5.2); Albumin/Globulin Ratio 1.1 (1-3); Calcium 8.8 mg/dL (8.6-10.3); Creatinine, Serum 0.56 mg/dL (0.67-1.17); Globulin 2.1 g/dL (2-4); Magnesium 1.9 mg/dL (1.9-2.7); Phosphorus 2.7 mg/dL (2.5-5.0); Potassium 4.2 mmol/L (3.5-5.0); Total Bilirubin 1.4 mg/dL (0.2-1.0); Total Protein 4.5 g/dL (6.4-8.9)
[2024-01-14] MEDS: Magnesium Hydroxide LIQ 30 ML UDC G TUBE PRN (09:57)
[2024-01-15 06:28] LABS: Hematocrit 36.9 % (38-53); Mean Corpuscular Hemoglobin 33.6 pg (27-33); Mean Corpuscular Hgb Conc 32.6 g/dL (31-36); Mean Corpuscular Volume 103.1 fL (80-97); Mean Platelet Volume 11.2 fL (7.5-11.2); Platelet Count 157 10^3/uL (150-450); Red Blood Count 3.57 10^6/uL (4.06-5.63); Red Cell Distribution Width 17.6 % (12-17); White Blood Count 27.6 10^3/uL (3.6-10.2)
[2024-01-15 06:29] LABS: ABS Basophils 0.1 10^3/uL (0.0-0.1); ABS Lymphocytes 0.2 10^3/uL (1.0-4.8); ABS Neutrophils 26.3 10^3/uL (1.5-7.6); ABS Nucleated RBC 0.03 10^3/ul; Lymphocyte % 0.8 %; Nucleated Red Blood Cells % 0.1 %/100WBC (0.0-0.8)
[2024-01-15 07:01] LABS: ALT 21 U/L (7-52); Albumin 2.5 g/dL (3.2-5.2); Albumin/Globulin Ratio 1.2 (1-3); Alkaline Phosphatase 118 U/L (35-149); Anion Gap 11 mmol/L (2-16); Blood Urea Nitrogen 57 mg/dL (6-24); CO2 Carbon Dioxide 21 mmol/L (22-32); Calcium 8.8 mg/dL (8.6-10.3); Chloride 109 mmol/L (101-111); Cholesterol 105 mg/dL; Creatinine, Serum 0.54 mg/dL (0.67-1.17); Globulin 2.1 g/dL (2-4); Glucose 211 mg/dL (70-100); Magnesium 2.2 mg/dL (1.9-2.7); Prealbumin 13 mg/dL (18-38); Sodium 141 mmol/L (135-145); Total Bilirubin 1.1 mg/dL (0.2-1.0); Total Protein 4.6 g/dL (6.4-8.9); Triglycerides 182 mg/dL; eGFR CKD-EPI 97.1 (>60)
[2024-01-15 07:18] LABS: PCO2 Arterial 31 mmHg (35-45)
[2024-01-15 07:19] LABS: Potassium, Whole Blood 4.3 mmol/L (3.4-4.5)
[2024-01-15 07:21] LABS: PO2 Arterial 58 mmHg (80-100)
[2024-01-15] MEDS: Furosemide 40 mg/4 ml IV VIAL IV ONE (07:24)
[2024-01-15] MEDS: Furosemide 40 mg/4 ml IV VIAL ONE (08:01)
[2024-01-15] MEDS: cefTRIAXone 1 gm/50 mL D5W 1 GM/50 ML BAG IV SCH (11:11)
[2024-01-15] MEDS: Azithromycin 500 mg/250 ml NS 500 MG/250 ML BAG IVPB SCH (11:49)
[2024-01-15 15:25] LABS: PCO2 Arterial 30 mmHg (35-45); PO2 Arterial 67 mmHg (80-100)
[2024-01-16 06:18] LABS: Hematocrit 27.9 % (38-53); Hemoglobin 9.3 g/dL (13.2-16.3); Mean Corpuscular Hemoglobin 33.6 pg (27-33); Mean Corpuscular Hgb Conc 33.5 g/dL (31-36); Mean Corpuscular Volume 100.2 fL (80-97); Mean Platelet Volume 11.4 fL (7.5-11.2); Platelet Count 165 10^3/uL (150-450); Red Blood Count 2.78 10^6/uL (4.06-5.63); Red Cell Distribution Width 18.1 % (12-17); White Blood Count 23.3 10^3/uL (3.6-10.2)
[2024-01-16 06:48] LABS: ALT 19 U/L (7-52); Albumin 2.2 g/dL (3.2-5.2); Albumin/Globulin Ratio 1.2 (1-3); Alkaline Phosphatase 80 U/L (35-149); Anion Gap 8 mmol/L (2-16); Blood Urea Nitrogen 65 mg/dL (6-24); CO2 Carbon Dioxide 27 mmol/L (22-32); Calcium 8.5 mg/dL (8.6-10.3); Chloride 108 mmol/L (101-111); Cholesterol 87 mg/dL; Creatinine, Serum 0.53 mg/dL (0.67-1.17); Globulin 1.9 g/dL (2-4); Glucose 189 mg/dL (70-100); Magnesium 2.1 mg/dL (1.9-2.7); Prealbumin 13 mg/dL (18-38); Sodium 143 mmol/L (135-145); Total Bilirubin 0.9 mg/dL (0.2-1.0); Total Protein 4.1 g/dL (6.4-8.9); Triglycerides 146 mg/dL; eGFR CKD-EPI 97.6 (>60)
[2024-01-16 07:56] LABS: ABS Lymphocytes 0.2 10^3/uL (1.0-4.8); ABS Monocytes 0.9 10^3/uL (0.0-1.1); ABS Neutrophils 22.3 10^3/uL (1.5-7.6); ABS Nucleated RBC 0.07 10^3/ul; Lymphocyte % 0.7 %; Nucleated Red Blood Cells % 0.3 %/100WBC (0.0-0.8)
[2024-01-16] MEDS: methylPREDNISolone SOD SUCC 125 mg 2 ML VIAL IV SCH (08:17)
[2024-01-16 11:52] LABS: Hematocrit 27.6 % (38-53); Mean Corpuscular Hemoglobin 33.3 pg (27-33); Mean Corpuscular Hgb Conc 32.8 g/dL (31-36); Mean Corpuscular Volume 101.5 fL (80-97); Mean Platelet Volume 11.6 fL (7.5-11.2); Platelet Count 182 10^3/uL (150-450); Red Blood Count 2.72 10^6/uL (4.06-5.63); Red Cell Distribution Width 17.7 % (12-17); White Blood Count 22.1 10^3/uL (3.6-10.2)
[2024-01-16 18:10] LABS: Phosphorus 2.1 mg/dL (2.5-5.0); Potassium Redraw 4.1 mmol/L (3.5-5.0)
[2024-01-16] MEDS: Iohexol 350 (CONTRAST) 500 ML MDV IV ONE (18:58)
[2024-01-16 20:45] LABS: Hematocrit 26.6 % (38-53); Hemoglobin 8.9 g/dL (13.2-16.3); Mean Corpuscular Hemoglobin 33.8 pg (27-33); Mean Corpuscular Hgb Conc 33.4 g/dL (31-36); Mean Corpuscular Volume 101.2 fL (80-97); Mean Platelet Volume 11.5 fL (7.5-11.2); Platelet Count 175 10^3/uL (150-450); Red Blood Count 2.63 10^6/uL (4.06-5.63); Red Cell Distribution Width 18.7 % (12-17)
[2024-01-16] MEDS: Acetaminophen IV 1 GM/100ML 1,000 MG/100 ML BAG IV PRN (22:52)
[2024-01-16] MEDS: Acetaminophen IV 1 GM/100ML 1,000 MG/100 ML BAG IV ONE (23:08)
[2024-01-17 04:30] LABS: INR 1.38 (0.85-1.14)
[2024-01-17 04:49] LABS: Hematocrit 26.7 % (38-53); Hemoglobin 8.6 g/dL (13.2-16.3); Mean Corpuscular Hemoglobin 33.2 pg (27-33); Mean Corpuscular Hgb Conc 32.4 g/dL (31-36); Mean Corpuscular Volume 102.4 fL (80-97); Mean Platelet Volume 11.7 fL (7.5-11.2); Platelet Count 219 10^3/uL (150-450); Red Blood Count 2.61 10^6/uL (4.06-5.63); Red Cell Distribution Width 19.4 % (12-17); White Blood Count 31.4 10^3/uL (3.6-10.2)
[2024-01-17 05:20] LABS: ABS Basophils 0.1 10^3/uL (0.0-0.1); ABS Lymphocytes 0.4 10^3/uL (1.0-4.8); ABS Monocytes 1.4 10^3/uL (0.0-1.1); ABS Neutrophils 29.5 10^3/uL (1.5-7.6); ABS Nucleated RBC 0.58 10^3/ul; Lymphocyte % 1.2 %; Nucleated Red Blood Cells % 1.8 %/100WBC (0.0-0.8)
[2024-01-17] MEDS: Piperacillin/Tazobac 3.375 BAG 3.375 GM/100 ML BAG IV ONE (08:51)
[2024-01-17] MEDS ORDERED: Zosyn per Pharmacy NOTE FOLLOW UP SCH (09:00)
[2024-01-17] MEDS ORDERED: Vancomycin per Pharmacy 1 EA NOTE FOLLOW UP SCH (09:00)
[2024-01-17] MEDS: Vancomycin 1,000 MG in NS 0.9% 250 ml 250 ML IVPB ONE (10:14)
[2024-01-17] MEDS: Furosemide 20 mg/2 ml IV VIAL IV SLOW PU ONE (10:32)
[2024-01-17 11:25] LABS: Albumin 2.5 g/dL (3.2-5.2); Albumin/Globulin Ratio 1.2 (1-3); Creatinine, Serum 0.88 mg/dL (0.67-1.17); Globulin 2.1 g/dL (2-4); Magnesium 2.3 mg/dL (1.9-2.7); Phosphorus 3.7 mg/dL (2.5-5.0); Potassium 4.5 mmol/L (3.5-5.0); Total Bilirubin 1.3 mg/dL (0.2-1.0); Total Protein 4.6 g/dL (6.4-8.9); eGFR CKD-EPI 83.7 (>60)
[2024-01-17] MEDS: Magnesium Sulfate 2 gm BAG 2 GM/50 ML BAG IVPB ONE (11:39)
[2024-01-17] MEDS: ZOSYN 3.375 GM Q8H per EXTENDED INFUSION IV SCH (13:32)
[2024-01-17] MEDS: Norepinephrine 4 MG/250mL NS 4,000 MCG/250 ML BAG IV SCH (13:45)
[2024-01-17] MEDS: PHENYLEPHRINE DRIP IVPREMIX 50 MG/250 ML BAG IV SCH (14:09)
[2024-01-17] MEDS: Vancomycin 1000 MG in NS 0.9% 250 ML IVPB SCH (17:01)
[2024-01-17] MEDS ORDERED: LORazepam 2 mg VIAL 1 ml IV PUSH PRN (19:04)
[2024-01-17] MEDS ORDERED: Morphine 2 MG/ML SYRINGE IV PRN (19:04)
[2024-01-17] MEDS ORDERED: Lorazepam PYXIS KEY PRN (19:04)
[2024-01-18 00:37] VITALS: BP 57/40
[2024-01-19] MEDS ORDERED: Vancomycin Trough Check NOTE FOLLOW UP ONE (05:30)
== END 2024-01-17 21:51 | disposition expired | DRG 871 ==
LOC: EDHOLD 13:27 → ED 13:27 → SUATTDRO 19:07 → MED 20:40 → SUATTDRO 12-21 12:34 → MED 12-23 09:44 → MEDTELE 01-07 20:11 → ICU 01-15 07:57
PROVIDERS: ADMIT Internal Medicine; ATTEND Student in an Organized Health Care Education/Training Program